=== PATIENT | female | born 1950 | race Caucasian/White ===

== ENCOUNTER 2024-02-11 22:09 | Observation (INO) | payer MEDICARE, MEDICAID, SELFPAY ==
[2024-02-11 22:09] VITALS: BP 158/99; PULSE 73; RESP 18; TEMP 36.6; O2SAT 99; BMI 23.3
--- NOTE | 2024-02-11 22:11 | XR_ITS ---
PROCEDURE INFORMATION: Exam: XR Left Elbow Exam date and time: 02/11/2024 10:30 PM Age: 73 years old Clinical indication: Injury or trauma; Fall; Fracture, traumatic injury; Closed fracture; Wrist; Left TECHNIQUE: Imaging protocol: Radiologic exam of the left elbow. Views: 3 or more views. COMPARISON: CR XR ELBOW LT MIN 3V 02/11/2024 10:30 PM FINDINGS: Bones/joints: The elbow is normally aligned. No acute fracture or joint effusion. Mild degenerative changes are noted. Soft tissues: Normal. IMPRESSION: No acute fracture.
--- NOTE | 2024-02-11 22:11 | XR_ITS ---
PROCEDURE INFORMATION: Exam: XR Chest Exam date and time: 02/11/2024 10:21 PM Age: 73 years old Clinical indication: Injury or trauma; Fall; Blunt trauma (contusions or hematomas); Additional info: Fall / left rib pain TECHNIQUE: Imaging protocol: Radiologic exam of the chest. Views: 2 views. COMPARISON: No relevant prior studies available. FINDINGS: Lungs: Unremarkable. No consolidation. Pleural spaces: Unremarkable. No pleural effusion. No pneumothorax. Heart/Mediastinum: Unremarkable. No cardiomegaly. Vasculature: Unremarkable. Bones/joints: Moderate degenerative changes of the spine. No acute fracture. IMPRESSION: No acute findings.
--- NOTE | 2024-02-11 22:11 | XR_ITS ---
PROCEDURE INFORMATION: Exam: XR Left Hand Exam date and time: 02/11/2024 10:30 PM Age: 73 years old Clinical indication: Injury or trauma; Fall; Fracture, traumatic injury; Closed fracture; Wrist; Left TECHNIQUE: Imaging protocol: Radiologic exam of the left hand. Views: 3 or more views. COMPARISON: CR XR HAND LT MIN 3V 02/11/2024 10:30 PM FINDINGS: Bones/joints: The wrist is reported separately. The metacarpals and phalanges are intact without acute fracture. Moderate degenerative changes of the 1st MCP joint. Soft tissues: Normal. IMPRESSION: No acute fracture of the metacarpals or phalanges.
--- NOTE | 2024-02-11 22:11 | XR_ITS ---
PROCEDURE INFORMATION: Exam: XR Left Wrist Exam date and time: 02/11/2024 10:30 PM Age: 73 years old Clinical indication: Injury or trauma; Fall; Fracture, traumatic injury; Closed fracture; Wrist; Left TECHNIQUE: Imaging protocol: Radiologic exam of the left wrist. Views: 3 or more views. COMPARISON: CR XR HAND LT MIN 3V 02/11/2024 10:30 PM FINDINGS: Bones/joints: There is a transverse distal radial fracture with significant dorsal and ulnar angulation of the distal fragment. No acute carpal bone fracture is evident. There are severe degenerative changes at the level of the 1st and 2nd CMC joints with heterotopic bone formation between the base of the 1st and 2nd metacarpals. Soft tissues: Significant soft tissue swelling most prominent ventrally. IMPRESSION: Transverse distal radial fracture with significant dorsal and ulnar angulation of the distal fragment. Associated soft tissue swelling.
--- NOTE | 2024-02-11 22:16 | ED_ITS ---
<Statement entered by Mehdi Ferreira MD - 02/12/24 01:14> I was consulted by the BERNIE, and we discussed the complexity of problems being addressed. I approved the treatment and management plan for this patient's care in the emergency department, thus performing a substantial portion of the medical decision making. See [facility] for further comments. Mehdi Ferreira MD Discharge Plan Disposition Patient Disposition: Admitted Clinical Impressions Clinical Impression: Frequent falls, Closed fracture of left radius and ulna Discharge ED Provider: Amber Arciniega Adult HPI <Enid Ye (ED), COMMUNITY HEALTH NURSE SUPERVISOR - Last Filed: 02/11/24 23:30> General Chief complaint: Extremity Injury, Upper Stated complaint: fall with arm deformity Time Seen by Provider: 02/11/24 22:11 History of Present Illness HPI narrative: This is a 73-year-old female who presents to the ED via EMS after a fall prior to arrival. She has her arm in a splint made by EMS. Pain is significant. She complains of left-sided rib pain from where she fell. Related Data Home Medications ?Medication ?Instructions ?Recorded ?Confirmed No Known Home Medications 02/12/24 02/12/24 Allergies Allergy/AdvReac Type Severity Reaction Status Date / Time No Known Allergies Allergy Verified 02/12/24 01:10 PFSH <Enid Ye (ED), COMMUNITY HEALTH NURSE SUPERVISOR - Last Filed: 02/11/24 23:30> [facility] Disclaimer: The information contained in this section may have been updated after the patient was seen, as this information can be updated by other users. Medical History (Updated 02/12/24 @ 00:44 by Mehdi Ferreira MD) COPD (chronic obstructive pulmonary disease) Hypertension Social History (Updated 02/11/24 @ 23:21 by Enid Ye (ED), COMMUNITY HEALTH NURSE SUPERVISOR) Smoking Status: Unknown if ever smoked alcohol intake: former current occupational status: unemployed Travel in the last 8 weeks: None <Enid Ye (ED), COMMUNITY HEALTH NURSE SUPERVISOR - Last Filed: 02/11/24 23:30> ROS Obtained: Yes Systems reviewed as appropriate & no additional complaints except as documented Constitutional Constitutional: Reports as per HPI Physical Exam <Enid Ye (ED), COMMUNITY HEALTH NURSE SUPERVISOR - Last Filed: 02/11/24 23:30> General General appearance: alert and in distress (And pain due to her fall secondary to left wrist pain) Head Head exam: atraumatic and normocephalic Eye Eye exam: Present normal appearance, PERRL and EOMI ENT ENT exam: Present normal exam Neck Neck exam: Present normal inspection and full ROM Chest Chest inspection: Present tenderness (On the left) Respiratory Respiratory exam: Present normal lung sounds bilaterally Cardiovascular Cardiovascular exam: Present regular rate, normal rhythm, normal heart sounds, +S1 and +S2 Abdominal Exam Abdominal exam: Present soft and normal bowel sounds Extremities Exam Extremities exam: Present tenderness, normal capillary refill (deformed left hand, wrist) and other (Left wrist and elbow have decreased range of motion due to fall. neurovascular intact ) Back Exam Back exam: Present normal inspection Neurological Exam Neurological exam: Present alert and oriented X3 Skin Skin exam: Present warm, dry and intact Medical Decision Making <Enid Ye (ED), COMMUNITY HEALTH NURSE SUPERVISOR - Last Filed: 02/11/24 23:30> Medical Records Screening: Per USPSTF and CDC recommendations, given the prevalence of disease in our region, it is our hospital?s policy to screen for HIV and viral Hepatitis for all patients aged 18 and over and those with ongoing risk factors. Mikey Inquiry Pt receiving controlled substance: No Vital Signs: 02/11/24 22:09 02/12/24 00:00 02/12/24 00:30 Temperature 97.9 F Temperature Source Oral Pulse Rate 74 71 Pulse Rate [Left Radial] 73 Respiratory Rate 18 Blood Pressure 167/97 H Blood Pressure [Right Arm] 158/99 H Blood Pressure Mean [Right Arm] 118 Blood Pressure Source [Right Arm] Automatic Cuff Blood Pressure Position [Right Arm] Sitting 02 Sat by Pulse Oximetry 99 96 97 Oxygen Delivery Method Room Air Orders (Tests/Meds): ED MEDICATIONS Generic Name Dose Route Start Last Admin Trade Name Freq PRN Reason Stop Dose Admin Acetaminophen 650 mg 02/12/24 00:43 Acetaminophen 325mg Tab PO 03/13/24 00:42 Q4HP PRN Fever or Mild Pain (1-3) Hydrocodone Bitart/Acetaminophen 1 tab 02/12/24 00:43 Hydrocodone/Apap 5/325 Mg Tablet PO 03/13/24 00:42 Q4HP PRN Mild to Moderate Pain (1-6) Heparin Sodium (Porcine) 5,000 unit 02/12/24 00:45 Heparin Sodium 5,000 Unit/Ml Vial SQ 03/13/24 00:44 Q8H ALEX Discontinued Medications Generic Name Dose Route Start Last Admin Trade Name Rocío PRN Reason Stop Dose Admin Hydrocodone Bitart/Acetaminophen 2 tab 02/11/24 22:14 02/11/24 22:24 Hydrocodone/Apap 5/325 Mg Tablet PO 02/11/24 22:15 2 tab ONCE ONE Administration Lidocaine HCl 20 ml 02/11/24 23:16 02/11/24 23:44 Lidocaine 1% 10ml Mdv IJ 02/11/24 23:17 20 ml ONCE ONE Administration ORDERS Category Date Time Status Elbow XR left mininum 3 views [XR elbow LT min 3V] Stat Exams 02/11/24 22:11 Completed Hand XR left minimum 3 views [XR hand LT min 3V] Stat Exams 02/11/24 22:11 Completed Wrist XR left 2 views [XR wrist LT 2V] Stat Exams 02/12/24 00:32 Completed Wrist XR left minimum 3 views [XR wrist LT min 3V] Stat Exams 02/11/24 22:11 Completed XR chest 2V Stat Exams 02/11/24 22:11 Completed Basic Metabolic Panel [facility] 02/12/24 06:00 Ordered Basic Metabolic Panel [facility] 02/13/24 06:00 Ordered Basic Metabolic Panel [facility] 02/14/24 06:00 Ordered Complete Blood Count Auto Diff [facility] 02/12/24 06:00 Ordered Complete Blood Count Auto Diff [facility] 02/13/24 06:00 Ordered Complete Blood Count Auto Diff [facility] 02/14/24 06:00 Ordered Medical Decision Narrative: Insert review patient is a 73-year-old female presenting to the emergency department for evaluation of fall injuring her left wrist and elbow. Patient is hemodynamically stable and nontoxic-appearing upon arrival, afebrile. Differential diagnosis includes sprain versus strain or fracture of left wrist and rib cage. Workup will be conducted with imaging of chest, left wrist, elbow and hand. Initial inventions include imaging of left ribs and left elbow and wrist. [Imaging informally interpreted by me and remarkable for:] [Formal imaging read remarkable for:] Upon repeat evaluation [patient's pain is improved, appears better perfused, appears the same, appears worse, etc. Due to this [additional interventions, patient is appropriate for discharge, patient requires admission, etc.]. <Mehdi Ferreira MD - Last Filed: 02/12/24 01:14> Vital Signs: 02/11/24 22:09 02/12/24 00:00 02/12/24 00:30 Temperature 97.9 F Temperature Source Oral Pulse Rate 74 71 Pulse Rate [Left Radial] 73 Respiratory Rate 18 Blood Pressure 167/97 H Blood Pressure [Right Arm] 158/99 H Blood Pressure Mean [Right Arm] 118 Blood Pressure Source [Right Arm] Automatic Cuff Blood Pressure Position [Right Arm] Sitting 02 Sat by Pulse Oximetry 99 96 97 Oxygen Delivery Method Room Air Orders (Tests/Meds): ED MEDICATIONS Generic Name Dose Route Start Last Admin Trade Name Freq PRN Reason Stop Dose Admin Acetaminophen 650 mg 02/12/24 00:43 Acetaminophen 325mg Tab PO 03/13/24 00:42 Q4HP PRN Fever or Mild Pain (1-3) Hydrocodone Bitart/Acetaminophen 1 tab 02/12/24 00:43 Hydrocodone/Apap 5/325 Mg Tablet PO 03/13/24 00:42 Q4HP PRN Mild to Moderate Pain (1-6) Heparin Sodium (Porcine) 5,000 unit 02/12/24 00:45 Heparin Sodium 5,000 Unit/Ml Vial SQ 03/13/24 00:44 Q8H ALEX Discontinued Medications Generic Name Dose Route Start Last Admin Trade Name Freq PRN Reason Stop Dose Admin Hydrocodone Bitart/Acetaminophen 2 tab 02/11/24 22:14 02/11/24 22:24 Hydrocodone/Apap 5/325 Mg Tablet PO 02/11/24 22:15 2 tab ONCE ONE Administration Lidocaine HCl 20 ml 02/11/24 23:16 02/11/24 23:44 Lidocaine 1% 10ml Mdv IJ 02/11/24 23:17 20 ml ONCE ONE Administration ORDERS Category Date Time Status Elbow XR left mininum 3 views [XR elbow LT min 3V] Stat Exams 02/11/24 22:11 Completed Hand XR left minimum 3 views [XR hand LT min 3V] Stat Exams 02/11/24 22:11 Completed Wrist XR left 2 views [XR wrist LT 2V] Stat Exams 02/12/24 00:32 Completed Wrist XR left minimum 3 views [XR wrist LT min 3V] Stat Exams 02/11/24 22:11 Completed XR chest 2V Stat Exams 02/11/24 22:11 Completed Basic Metabolic Panel [facility] 02/12/24 06:00 Ordered Basic Metabolic Panel [facility] 02/13/24 06:00 Ordered Basic Metabolic Panel [facility] 02/14/24 06:00 Ordered Complete Blood Count Auto Diff [facility] 02/12/24 06:00 Ordered Complete Blood Count Auto Diff [facility] 02/13/24 06:00 Ordered Complete Blood Count Auto Diff [facility] 02/14/24 06:00 Ordered Medical Decision Narrative: Insert review patient is a 73-year-old female presenting to the emergency department for evaluation of fall injuring her left wrist and elbow. Patient is hemodynamically stable and nontoxic-appearing upon arrival, afebrile. Differential diagnosis includes sprain versus strain or fracture of left wrist and rib cage. Workup will be conducted with imaging of chest, left wrist, elbow and hand. Initial inventions include imaging of left ribs and left elbow and wrist. [Imaging informally interpreted by me and remarkable for:] [Formal imaging read remarkable for:] Upon repeat evaluation [patient's pain is improved, appears better perfused, appears the same, appears worse, etc. Due to this [additional interventions, patient is appropriate for discharge, patient requires admission, etc.]. Ferreira: Upon my assumption of care patient is stable. I personally interpreted x-rays which demonstrate left distal radius and ulna fracture with angulation. See radiology reads for final interpretations. I discussed this case with Dr. Holloway and reviewed images with him. He recommends hematoma block, hanging the patient's arm with finger traps and weights as well as reduction and sugar-tong splinting for outpatient follow-up. Hematoma block, reduction, splinting were completed. See procedure note for details. Repeat x-ray imaging demonstrated improved alignment after reduction. Neurovascularly intact postreduction. Sling applied for splint support Patient at this time is medically stable however she has had frequent falls recently and has no electricity at home which was the cause of her fall tonight. She was attempting to cook over a fire pit when she fell off of her porch onto outstretched hand causing her injuries tonight. She states her fall earlier this week she skinned her knee. No complaints of the knee at this time. Patient does not have anyone to contact, no family or friends who are available. At this time she does not have a safe disposition given her frequent falls and lack of electricity, unsafe living conditions. I believe she requires admission for these reasons. I contacted the hospitalist and discussed this case with them. Patient has been accepted for admission for frequent falls and both bone left upper extremity fracture. Procedures <Mehdi Ferreira MD - Last Filed: 02/12/24 01:14> Risk/Benefits of Procedure(s) Were Explained: Yes Orthopedic Fracture Reduction Fracture #1: Time Out Performed: Yes Side: left Fracture Reduction Location: radius and ulna Analgesia: hematoma block Technique: direct manipulation, traction/counter-traction and finger traps Post Reduction X-rays Demonstrate: anatomical reduction Post-reduction neuro exam: intact and no change Post-reduction vascular exam: intact and no change Splint Applied: Yes Patient Tolerated Procedure: well and no complications Orthopedic Splinting/Casting Injury #1: Side: left Upper Extremity Injury Location: forearm Upper Extremity Immobilizer: sugar tong splint (Soft roll, Montrell wrap, plaster used for splint; splint personally applied and adjusted by me) Post Cast/Splinting Neuro Status: intact and no change Post Cast/Splinting Vasc Status: intact and no change Critical Care <Enid Ye (MARLON), COMMUNITY HEALTH NURSE SUPERVISOR - Last Filed: 02/11/24 23:30> Critical Care Time Critical Care Time: No
[2024-02-11] MEDS: HYDROCODONE/APAP 5/325 MG TABLET 2 TAB PO (22:24)
[2024-02-11] MEDS: LIDOCAINE 1% 10ML MDV 20 ML IJ (23:44)
--- NOTE | 2024-02-11 23:51 | PC.NURSE ---
Placed plaster, cast padding, librado wraps, warm water, finger traps, and IV pole at bedside for provider. Provider performed hematoma block at this time. Patient tolerated well. Patient reports no needs at this time.
[2024-02-12] VITALS: PULSE 74; O2SAT 96
[2024-02-12 00:30] VITALS: BP 167/97; PULSE 71; O2SAT 97
--- NOTE | 2024-02-12 00:32 | XR_ITS ---
PROCEDURE INFORMATION: Exam: XR Left Wrist Exam date and time: 02/12/2024 12:47 AM Age: 73 years old Clinical indication: Abnormal findings; Abnormal imaging study of the limbs; Left wrist; Additional info: Post splint TECHNIQUE: Imaging protocol: Radiologic exam of the left wrist. Views: 1 or 2 views. COMPARISON: CR XR WRIST LT MIN 3V 02/11/2024 10:30 PM FINDINGS: Bones/joints: The distal radial fracture has been reduced. Anatomic alignment is evident. A cast is now in place. Soft tissues: Obscured. IMPRESSION: Status post reduction of the distal radial fracture with anatomic alignment noted.
--- NOTE | 2024-02-12 00:44 | PC.NURSE ---
call placed to housetrailer servicer for bed assignment. dx: radial ulna fracture, frequent falls. admit to hospitalist
--- NOTE | 2024-02-12 01:09 | PC.NURSE ---
Nurse to nurse report Lore OLVERA
[2024-02-12 01:11] VITALS: BP 132/76; PULSE 59; RESP 17; TEMP 36.7; O2SAT 99
[2024-02-12 01:27] VITALS: BP 132/76; PULSE 68; RESP 18; O2SAT 98; BMI 21.0
[2024-02-12] MEDS: HEPARIN SODIUM 5,000 UNIT/ML VIAL 5000 UNIT SQ ×2 (02:05→08:40)
[2024-02-12] MEDS: HYDROCODONE/APAP 5/325 MG TABLET 1 TAB PO ×3 (02:51→16:40)
[2024-02-12 04:00] VITALS: BP 138/71; PULSE 71; RESP 16; TEMP 36.4; O2SAT 99; BMI 21.0
--- NOTE | 2024-02-12 04:21 | P.HP_ITS ---
History of Present Illness *Admission Date: 02/12/24 *Reason for visit:: falls *History of present illness: Patient is a 73-year-old female with past medical history of COPD hypertension who presents to the hospital due to the fall. According to the patient this is her second fall in the past 1 week. After the fall she developed s pain in her left side of chest as well as left arm, on further evaluation patient was found to be having transverse distal radial fracture which was reduced in the emergency department. Patient was admitted for recurrent falls and physical therapy evaluation. [facility] Disclaimer: The information contained in this section may have been updated after the patient was seen, as this information can be updated by other users. Medical History (Updated 02/12/24 @ 04:31 by Sara Putnam MD) COPD (chronic obstructive pulmonary disease) Hypertension Surgical History (Updated 02/12/24 @ 01:57 by Lore Macias RN) History of cholecystectomy Family History (Updated 02/12/24 @ 01:57 by Lore Macias RN) Mother Diabetes Heart attack Sister Hypertension Father Esophageal cancer Social History (Updated 02/12/24 @ 01:59 by Lore Macias RN) Smoking Status: Unknown if ever smoked alcohol intake: current substance use type: marijuana current occupational status: retired Travel in the last 8 weeks: None Review of Systems Review of Systems Review of systems:: pertinent systems reviewed and negative unless documented below Meds Home Medications and Allergies Home Medications ?Medication ?Instructions ?Recorded ?Confirmed ?Type No Known Home Medications 02/12/24 02/12/24 History New Prescriptions to Start Prescriptions: Allergies Allergy/AdvReac Type Severity Reaction Status Date / Time No Known Allergies Allergy Verified 02/12/24 01:10 Exam Data for Last 24 hours Vital signs and Labs for Last 24 Hours: Temp Pulse Resp BP Pulse Ox O2 Del Method 98.0 F 59 L 17 132/76 97 Room Air 02/12/24 01:11 02/12/24 01:11 02/12/24 01:11 02/12/24 01:11 02/12/24 00:30 02/12/24 02:57 I & O for Last 24 hours: Intake & Output 02/09/24 02/10/24 02/11/24 02/12/24 23:59 23:59 23:59 23:59 Weight 63.503 kg Constitutional Constitutional: no acute distress *Routine HEENT Exam Head: Present normocephalic Eye: Present EOMI and PERRL ENT: Present mucous membranes moist *Routine Neck Exam Neck: Present supple; Absent lymphadenopathy *Routine Respiratory Exam Respiratory: Present CTA bilaterally *Routine Cardiovascular Exam Cardiovascular: Present RRR *Routine Abdominal Exam Abdominal: Present soft and normoactive bowel sounds; Absent tenderness *Routine Rectal Exam Rectal:: deferred *Routine Genitalia Exam Genitalia:: deferred *Routine Extremities Exam Extremities: Absent cyanosis, clubbing or edema *Routine Skin Exam Skin: Present warm; Absent rash *Routine Neurological Exam Neurological: Present alert and oriented X3 Assessment and Plan *Assessment and plan (1) Closed fracture of left radius and ulna: Status: Acute Category: Medical Code(s): S52.92XA - Unspecified fracture of left forearm, initial encounter for closed fracture; S52.202A - Unspecified fracture of shaft of left ulna, initial encounter for closed fracture (2) Frequent falls: Status: Acute Category: Medical Code(s): R29.6 - Repeated falls (3) COPD (chronic obstructive pulmonary disease): Status: Acute Category: Medical Code(s): J44.9 - Chronic obstructive pulmonary disease, unspecified Plan Patient is a 73-year-old female with past medical history of COPD hypertension who presents to the hospital due to the fall. According to the patient this is her second fall in the past 1 week. After the fall she developed s pain in her left side of chest as well as left arm, on further evaluation patient was found to be having transverse distal radial fracture which was reduced in the emergency department. Patient was admitted for recurrent falls and physical therapy evaluation. Assessment Recurrent falls Left distal radius fracture Fall precautions Consult PT/OT X-ray left wrist did not show transverse distal radius fracture which was reduced in the emergency department, splint was applied, pain follow-up with orthopedics as outpatient Consult social work therapist Pain control Check CBC, CMP COPD As needed DuoNeb DVT prophylaxis-heparin
[2024-02-12 05:09] LABS: POC Glucose,Bedside 111 (70-110)
[2024-02-12 05:11] LABS: Basophils % 0.4 % (0.1-2.0); Eosinophils # 0.2 K/mm3 (0.0-0.4); Eosinophils % 3.6 % (0.1-12.0); Hematocrit 43.3 % (37.0-47.0); Hemoglobin 13.3 g/dL (12.2-16.2); Lymphocytes # 1.3 K/mm3 (0.7-4.5); Lymphocytes % 24.1 % (10-50); Mean Corpuscular HGB Conc 30.6 g/dL (31.8-35.4); Mean Corpuscular Hemoglobin 29.5 pg (27.0-31.2); Mean Corpuscular Volume 96.4 fl (81-99); Mean Platelet Volume 7.7 fl (7.4-10.4); Monocytes # 0.3 K/mm3 (0.1-1.0); Neutrophils # 3.6 K/mm3 (1.8-7.8); Neutrophils % 65.9 % (37.0-80.0); Platelet Count 216 K/mm3 (142-424); Red Cell Distribution Width 13.4 % (11.5-17.5); White Blood Count 5.5 K/mm3 (4.8-10.8)
[2024-02-12 05:19] LABS: Alanine Aminotransferase 24 U/L (12-78); Albumin Level 4.1 g/dl (3.5-5.0); Albumin/Globulin Ratio 1.4 (1.1-1.8); Alkaline Phosphatase 90 U/L (38-126); Anion Gap 5.4 mEq/L (5-15); Aspartate Amino Transferase 31 U/L (14-36); Bilirubin,Total 0.4 mg/dl (0.2-1.3); Blood Urea Nitrogen 24 mg/dl (7-17); Carbon Dioxide 27 mmol/L (22.0-30.0); Chloride 109 mmol/L (98-107); Creatinine Clearance Estimated 45 mL/min (50-200); Estimated Glomerular Filt Rate 70 ml/min (>60); GFR (African American) 85 ML/MIN (>60); Glucose 114 mg/dl (74-100); Potassium 3.4 mmoL/L (3.5-5.1); Sodium 138 mmol/L (136-145); Total Protein,Serum 7.1 g/dl (6.3-8.2)
--- NOTE | 2024-02-12 07:41 | PC.NURSE ---
Accessed PT chart to get a face sheet for EMS.
[2024-02-12 08:00] VITALS: BP 137/76; PULSE 87; RESP 16; TEMP 36.7; O2SAT 100
[2024-02-12] MEDS: POTASSIUM CHLORIDE 20MEQ TAB 40 MEQ PO ×2 (08:34→11:58)
--- NOTE | 2024-02-12 08:49 | HMH.PHAINT1 ---
Pharmacy Intervention Comments: MEDICATION RECONCILIATION COMPLETE. NO CURRENT EXTERNAL PHARMACY FILL HISTORY AND PER STEVIE PATIENT STATED SHE HASN'T BEEN TO THE DOCTOR IN AWHILE AND IS TAKING NOTHING AT HOME.
[2024-02-12 10:09] LABS: Vitamin B12 317 pg/mL (239-931)
--- NOTE | 2024-02-12 10:21 | HMH.PTEV ---
Physical Therapy Evaluation Rehab PT IP Evaluation Start: 02/12/24 00:46 Freq: ONCE Status: Active Protocol: Document 02/12/24 10:11 MARY (Rec: 02/12/24 10:21 MARY [id number]) Subjective/History History History Per H&P: Patient is a 73-year -old female with past medical history of COPD hypertension who presents to the hospital due to the fall. According to the patient this is her second fall in the past 1 week . After the fall she developed s pain in her left side of chest as well as left arm, on further evaluation patient was found to be having transverse distal radial fracture which was reduced in the emergency department. Patient was admitted for recurrent falls and physical therapy evaluation. Subjective Subjective Pt reports she lives with her younger sister and is usually IND with all functional mobility. Pt lives in a mobile home with a porch addition that has 2 VALENTINE with a HR. Pt ended up with a distal radius fracture after falling up her steps at home. Pt also tripped previously that week and fell on the porch. Pt denies any falls prior. Pt denies ever using an AD (no cane or RW). Pt does not drive. Pt reports her sister is around during the day if needed. Pt reports she currently does not have electricity so she is having to navigate in the dark at home. I think I can walk well New diagnosis of cancer in past 12 No months? Rehab PT IP Eval Objective Appearance Patient Behavior Appropriate,Cooperative Patient Orientation Person,Situation Difficulty following instructions none Speech Pattern Clear Ambulation Patient Able to Ambulate Yes Ambulation Observation Ambulation Distance (feet) 30 Ambulation Assistive Device None Ambulation Ability Supervision/Stand by Balance Ability to Arise Able, uses arms to help Sitting Balance Steady, safe Standing Balance Narrow stance w/o support Dynamic Sitting Balance Ability Good Dynamic Standing Balance Ability Good Transfers Bed Transfer Ability Supervision/Stand by Sit to Stand Bed Transfer Ability Supervision/Stand by Rehab PT IP prob,goals,plan Problems Date of Evaluation: 02/12/24 Rehab Potential Rehab Potential Innapropriate for Skilled Therapy Discharge Plan PT Discharge Plan Pt safe to d/c home when deemed medically necessary d/t current level of mobility, home set-up, and family support. PT assumes pt is NWB LUE d/t the nature of her injury. PT educated pt on not putting weight through her forearm/wrist. PT demo'd a platform walker to allow improved mobility with this type of injury. Pt reports she does not need a walker. After assessing pt's mobility, pt demo'd safe household level ambulation without an AD. No safety impairments or balance deficits noted during ambulation and toileting tasks . Pt not appropriate for skilled acute care PT at this time d/t pt?s mobility being at baseline. Pt may benefit from PT services to address general strengthening, balance training, and fall education to prevent future falls. Eval Complexity Eval Charge Codes 37865 - Low Complexity PHYSICIAN CERTIFICATION: I certify the specified therapy services for Latia Rashid are required, authorized, and reviewed every 30 days.
[2024-02-12 11:25] LABS: POC Glucose,Bedside 119 (70-110)
--- NOTE | 2024-02-15 12:41 | SW/DCPLANNER ---
I attempted to contact this patient twice for hospital discharge follow up. No answer at this time/no VM available.
--- NOTE | 2024-02-25 07:58 | EXP.DC.SUM ---
General Admission date:: 02/12/24 Discharge date: 02/12/24 HPI HPI HPI: Patient is a 73-year-old female with past medical history of COPD hypertension who presents to the hospital due to the fall. According to the patient this is her second fall in the past 1 week. After the fall she developed s pain in her left side of chest as well as left arm, on further evaluation patient was found to be having transverse distal radial fracture which was reduced in the emergency department. Patient was admitted for recurrent falls and physical therapy evaluation. Hospital Course Hospital Course Hospital Course: Patient is a 73-year-old female with past medical history of COPD hypertension who presents to the hospital due to the fall. According to the patient this is her second fall in the past 1 week. After the fall she developed s pain in her left side of chest as well as left arm, on further evaluation patient was found to be having transverse distal radial fracture which was reduced in the emergency department. Patient was admitted for recurrent falls and physical therapy evaluation. Recurrent falls Left distal radius fracture - X-ray left wrist showed transverse distal radius fracture which was reduced in the emergency department, orthopedics was consulted and splint was applied, pain follow-up with orthopedics as outpatient. ? PT consulted, recommended home health with PT. ? Pain well managed with ibuprofen. - Discharged with home health with physical therapy. - Will follow-up with orthopedics within 1 week. Exam Data for Last 24 hours Vital signs and Labs for Last 24 Hours: Temp Pulse Resp BP Pulse Ox O2 Del Method 98.1 F 87 16 137/76 100 Room Air 02/12/24 08:00 02/12/24 08:00 02/12/24 08:00 02/12/24 08:00 02/12/24 08:00 02/12/24 17:00 Constitutional Constitutional: no acute distress *Routine HEENT Exam Head: Present normocephalic Eye: Present EOMI and PERRL ENT: Present mucous membranes moist *Routine Neck Exam Neck: Present supple; Absent lymphadenopathy *Routine Respiratory Exam Respiratory: Present CTA bilaterally *Routine Cardiovascular Exam Cardiovascular: Present RRR *Routine Abdominal Exam Abdominal: Present soft and normoactive bowel sounds; Absent tenderness *Routine Extremities Exam Extremities: Absent cyanosis, clubbing or edema Comments: Left wrist splint in place. *Routine Skin Exam Skin: Present warm; Absent rash *Routine Neurological Exam Neurological: Present alert and oriented X3 DS: Diagnosis Discharge Diagnosis (1) Closed fracture of left radius and ulna: Status: Acute Code(s): S52.92XA - Unspecified fracture of left forearm, initial encounter for closed fracture; S52.202A - Unspecified fracture of shaft of left ulna, initial encounter for closed fracture (2) Frequent falls: Status: Acute Code(s): R29.6 - Repeated falls (3) COPD (chronic obstructive pulmonary disease): Status: Acute Code(s): J44.9 - Chronic obstructive pulmonary disease, unspecified Meds Home Medications and Allergies Home Medications ?Medication ?Instructions ?Recorded ?Confirmed ?Type ibuprofen 600 mg tablet 600 mg PO TID PRN pain #20 tabs 02/12/24 03/16/24 Rx New Prescriptions to Start Prescriptions: ibuprofen Jae Carey Allergies Allergy/AdvReac Type Severity Reaction Status Date / Time No Known Allergies Allergy Verified 03/16/24 10:18 Discharge Plan Disposition Patient Disposition: Home, Self-Care Condition: Fair Follow up Plan Follow up with: Forest Holloway DO [Staff Physician] - Enter time for follow up (Please call to make an appointment.) Prescriptions/Medication Reconciliation: New ibuprofen 600 mg tablet 600 mg PO TID PRN (Reason: pain) Qty: 20 0RF Problem Reconciliation Problems Reviewed?: Yes Patient Discharge Instructions ACTIVITY: Ambulate as tolerated Patient Instructions: DI for Forearm Fracture, How to Prevent Falls Print Language: Togolese Providers Primary Care Provider: Hasmukh Schreiber Admit Provider: Jae Carey Attending Provider: Jae Carey
== END 2024-02-12 17:10 | disposition home or self-care (01) ==
LOC: ER 02-12 00:44 → 2ND 02-12 01:37
PROVIDERS: Internal Medicine; Admitting Provider Student in an Organized Health Care Education/Training Program; Emergency Provider Student in an Organized Health Care Education/Training Program; PCP Family Medicine; Visit Provider Student in an Organized Health Care Education/Training Program
DX: S52.92XA Unspecified fracture of left forearm, initial encounter for closed fracture (principal); W10.8XXA Fall (on) (from) other stairs and steps, initial encounter; J44.9 Chronic obstructive pulmonary disease, unspecified; I10 Essential (primary) hypertension; R29.6 Repeated falls; Z91.81 History of falling; Y92.018 Other place in single-family (private) house as the place of occurrence of the external cause
CPT/HCPCS: 25605; 36415; 71046; 73080; 73100; 73110; 73130; 80053; 82607; 82746; 82962; 85025; 97161; 99285; G0378; J1644

== ENCOUNTER 2024-03-02 09:24 | Outpatient (CLI) | payer MEDICARE, MEDICAID, SELFPAY ==
--- NOTE | 2024-03-02 09:28 | XR_ITS ---
FINAL REPORT CLINICAL HISTORY: fx follow up 3 weeks post fracture no surgery COMPARISON: 02/12/2024 FINDINGS: LEFT WRIST Three views of the left wrist were obtained. A splint is present which obscures some of the detail. There is a comminuted impacted fracture of the distal radius with a small amount of callus formation at the fracture site consistent with interval healing. No new bony abnormalities identified. Severe degenerative changes are noted at the first carpometacarpal joint. The soft tissues are unremarkable. IMPRESSION: Healing distal radius fracture. Reviewed, Interpreted and Dictated by Chava Packer III, MD Transcribed by Mary Ellen Gayle Authenticated and [facility]
== END 2024-03-02 23:59 | disposition home or self-care (01) ==
PROVIDERS: PCP Family Medicine; Visit Provider Physician Assistant
DX: M25.532 Pain in left wrist (principal); S62.102A Fracture of unspecified carpal bone, left wrist, initial encounter for closed fracture
CPT/HCPCS: 73110

== ENCOUNTER 2024-03-16 09:18 | Outpatient (CLI) | payer MEDICARE, MEDICAID, SELFPAY ==
--- NOTE | 2024-03-16 09:30 | XR_ITS ---
PROCEDURE INFORMATION: Exam: XR Left Wrist Exam date and time: 03/16/2024 9:38 AM Age: 73 years old Clinical indication: Pain; Wrist; Left; Additional info: Fracture f/u TECHNIQUE: Imaging protocol: Radiologic exam of the left wrist. Views: 3 or more views. COMPARISON: CR XR WRIST LT MIN 3V 03/02/2024 9:35 AM FINDINGS: Bones/joints: Unchanged alignment and mild increased callus formation of the comminuted, minimally displaced distal intra-articular radius fracture. Fracture gaps are still visible. No new fracture or malalignment. Moderate to severe degenerative change of the triscaphe joint again demonstrated. Soft tissues: Overlying splint limits evaluation of soft tissues and fine bony detail. IMPRESSION: Continued healing and unchanged alignment of distal radius fracture.
== END 2024-03-16 23:59 | disposition home or self-care (01) ==
PROVIDERS: PCP Family Medicine; Visit Provider Physician Assistant
DX: S62.102A Fracture of unspecified carpal bone, left wrist, initial encounter for closed fracture (principal)
CPT/HCPCS: 73110

== ENCOUNTER 2024-03-30 09:20 | Outpatient (CLI) | payer MEDICARE, MEDICAID, SELFPAY ==
--- NOTE | 2024-03-30 09:28 | XR_ITS ---
FINAL REPORT CLINICAL HISTORY: .fx 2 months ago no surgery COMPARISON: 03/02/2024 FINDINGS: LEFT WRIST Three views of the left wrist were obtained. Cast obscures some of the detail. Again noted is a distal radius fracture. Bony alignment is stable. There are degenerative and postoperative changes of the wrist. The soft tissues are unremarkable. IMPRESSION: Distal radius fracture again noted with stable bony alignment. Reviewed, Interpreted and Dictated by Chava Packer III, MD Transcribed by Zenaida Dubon Authenticated and [facility]
== END 2024-03-30 23:59 | disposition home or self-care (01) ==
LOC: RAD 09:22
PROVIDERS: PCP Family Medicine; Visit Provider Orthopaedic Surgery
DX: S62.102A Fracture of unspecified carpal bone, left wrist, initial encounter for closed fracture (principal)
CPT/HCPCS: 73110

== ENCOUNTER 2024-04-27 09:14 | Outpatient (CLI) | payer MEDICARE, OTHER, SELFPAY ==
--- NOTE | 2024-04-27 09:19 | XR_ITS ---
FINAL REPORT CLINICAL HISTORY: left wrist fx f/u COMPARISON: 03/30/2024 FINDINGS: LEFT WRIST Three views of the left wrist were obtained. The cast has been removed. There are subacute fractures of the distal radius and ulnar styloid process. There is callus formation at the radial fracture site. The bony alignment is stable. There are severe degenerative changes of the first carpometacarpal joint. There is wrist soft tissue swelling. IMPRESSION: Subacute fractures of the distal radius and ulnar styloid process with callus formation at the radial fracture site. Reviewed, Interpreted and Dictated by Chava Packer III, MD Transcribed by Mary Ellen Gayle Authenticated and [facility]
== END 2024-04-27 23:59 | disposition home or self-care (01) ==
LOC: RAD 09:17
PROVIDERS: PCP Family Medicine; Visit Provider Physician Assistant Surgical
DX: S62.102A Fracture of unspecified carpal bone, left wrist, initial encounter for closed fracture (principal)
CPT/HCPCS: 73110

== ENCOUNTER 2024-06-01 14:00 | Outpatient (CLI) | payer MEDICARE, MEDICAID, SELFPAY ==
--- NOTE | 2024-06-01 14:05 | XR_ITS ---
FINAL REPORT CLINICAL HISTORY: left wrist pain, F/U FX COMPARISON: 04/27/2024 FINDINGS: LEFT WRIST Three views demonstrate once again a transverse fracture of the distal radial metaphysis with intra-articular extension. There is mild impaction of the fracture fragments, and bridging callus. The overall appearance is not significantly changed since the prior exam of 04/27/2024. There is ulnar positive variance noted. The ulnar styloid is a free fragment, also stable. 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 The soft tissues are unremarkable. IMPRESSION: No significant change in the transverse fracture of the distal radial metaphysis, as described, when compared to the prior exam of 04/27/2024. Reviewed, Interpreted and Dictated by Homero Colin MD Transcribed by Erendira Blank Authenticated and [facility]
== END 2024-06-01 23:59 | disposition home or self-care (01) ==
PROVIDERS: PCP Family Medicine; Visit Provider Physician Assistant Surgical
DX: S62.102A Fracture of unspecified carpal bone, left wrist, initial encounter for closed fracture (principal)
CPT/HCPCS: 73110

== ENCOUNTER 2024-10-28 16:33 | Emergency (ER) | payer MEDICARE, SELFPAY ==
--- OUTSIDE RECORDS SUMMARY | 2024-09-27 11:00 | XMS_ITS | Encounter Summary ---
Author Organization [place] [address] Care Team Providers Care Seafood Manager Name Role Phone Hasmukh Schreiber MD Primary Care Provider Reason for Visit * Reason Comments Annual Exam Encounter Details Date Type Department Care Team (Late st Contact Info) Description 09/27/2024 11:00 AM EDT Office Visit [facility] [address] [place] [address] Hasmukh Schreiber MD [address] [place] [address] Annual physical exam (Primary Dx); Leg swelling; Chronic pain of left knee Social History Tobacco Use Types Packs/Day Years Used Date Smoking Tobacco: Never Smokeless Tobacco: Never Alcohol Use Standard Drinks/Week Comments Yes 0 (1 standard drink = 0.6 oz pur e alcohol) 2 beers a day and whisky PHQ-2 Answer Date Recorded PHQ-2 Total Score 0 09/27/2024 Sexually Active Control Partners Comments Yes Male Comments No Sex and Gender Information Value Date Recorded Sex Assigned at Not on file Legal Sex Female 9:26 PM EDT Gender Identity Not on file Sexual Orientation Not on file documented as of this encounter Last Filed Vital Signs Vital Sign Reading Time Taken Comments Blood Pressure 130/78 09/27/2024 10:29 AM EDT Pulse - - Temperature 36.7 C (98 F) 09/27/2024 10:29 AM EDT Respiratory Rate - - Oxygen Saturation - - Inhaled Oxygen Concentration - - Weight 64.4 kg (142 lb) 09/27/2024 10:29 AM EDT Height 170.2 cm (5' 7 ) 09/27/2024 10:29 AM EDT Body Mass Index 22.24 09/27/2024 10:29 AM EDT documented in this encounter Functional Status * Cognitive and Functional Status Question Answer Date of Assessment Author Is the person deaf or does he/she have serious difficulty hearing? No 09/27/2024 10:28 AM Cheryl Blue CCMA Is the person blind or does he/she have serious difficulty seeing even when wearing glasses? No 09/27/2024 10:28 AM Cheryl Blue CCMA Does this person have seriou s difficulty walking or climbing stairs? No 09/27/2024 10:28 AM Cheryl Blue CCMA Does this person have difficulty dressing or bathing? No 09/27/2024 10:28 AM Cheryl Blue CCMA * Is the person deaf or does he/she have serious difficulty hearing? Answer Date of Assessment Author No 09/27/2024 10:28 AM Cheryl Blue CCMA * Is the person blind or does he/she have serious difficulty seeing even when wearing glasses? Answer Date of Assessment Author No 09/27/2024 10:28 AM Cheryl Blue CCMA * Does this person have serious difficulty walking or climbing stairs? Answer Date of Assessment Author No 09/27/2024 10:28 AM Cheryl Blue CCMA * Does this person have difficulty dressing or bathing? Answer Date of Assessment Author No 09/27/2024 10:28 AM Cheryl Blue CCMA * Because of a physical, mental or emotional condition, does this person have difficulty doing errands alone such as visiting a doctor's office or shopping? Answer Date of Assessment Author No 09/27/2024 10:28 AM Cheryl Blue CCMA * PHQ-9 Total Score Answer Date of Assessment Author 0 09/27/2024 10:28 AM EDT Aimee, Cheryl Mariana, CCMA * Question Answer Date of Assessment Author Little interest or pleasure in doing things 0 09/27/2024 10:28 AM Cheryl Blue CCMA Feeling down, depressed, or hopeless 0 09/27/2024 10:28 AM Cheryl Blue CCMA PHQ-2 Total Score 0 09/27/2024 10:28 AM EDT Cheryl Yu CCMA * Question Answer Date of Assessment Author Feeling Nervous, Anxious, or on Edge 0 09/27/2024 10:28 AM EDCheryl Goddard CCMA Not Being Able to Stop or Control Worrying 0 09/27/2024 10:28 AM Cheryl Blue CCMA Worrying too Much About Different Things 0 09/27/2024 10:28 AM EDCheryl Goddard CCMA Trouble Relaxing 0 09/27/2024 10:28 AM EDCheryl Goddard CCMA Being so Restless That it is Hard to Sit Still 0 09/27/2024 10:28 AM Cheryl Blue CCMA Becoming Easily Annoyed or Irritable 0 09/27/2024 10:28 AM Cheryl Blue CCMA Feeling Afraid as if Something Awful Might Happen 0 09/27/2024 10:28 AM Cheryl Blue CCMA MILAGRO-7 Total Score 0 09/27/2024 10:28 AM Cheryl Blue CCMA documented as of this encounter Mental Status * Cognitive and Functional Status Question Answer Entry Date Author Because of a physical, menta l or emotional condition, does this person have difficulty doing errands alone such as visiting a doctor's office or shopping? No 09/27/2024 10:28 AM Cheryl Blue CCMA Because of a physical, menta l or emotional condition, does this person have serious difficulty concentrating, remembering or making decisions? No 09/27/2024 10:28 AM Cheryl Blue CCMA * Because of a physical, mental or emotional condition, does this person have serious difficulty concentrating, remembering or making decisions? Answer Entry Date Author No 09/27/2024 10:28 AM EDT Cheryl Yu CCMA documented in this encounter Ordered Prescriptions Prescription Sig Dispense Quantity Refills Last Filled Start Date End Date meloxicam (MOBIC) 7.5 mg Oral TabletIndications:C hronic pain of left knee Take 1 Tablet by mouth daily. 30 Tablet 2 09/27/2024 fUROsemide (LASIX) 20 mg Oral TabletIndications:L eg swelling Take 1 Tablet by mouth daily as needed. 30 Tablet 5 09/27/2024 documented in this encounter Progress Notes * Hasmukh Schreiber MD - 09/27/2024 11:00 AM EDT Vitals: 09/27/24 1029 BP: 130/78 Temp: 98 ??F (36.7 ??C) Weight: 142 lb (64.4 kg) Height: 5' 7 (1.702 m) Body mass index is 22.24 kg/m??. SUBJECTIVE: Chief Complaint Patient presents with Annual Exam HPI: Medicare Wellness Assessment: Subsequent Annual Medicare Wellness Assessment. Risk Assessments: Fall Risk Assessment Has the patient had any fall with injury in the past year?: No Has the patient had 2 or more falls in the past year?: No Is the patient able to sit without assistance?: Yes Is the patient able to get up without assistance?: Yes Does the patient have a difficult time ambulating when first getting up?: No Does the patient have rugs or runners in the home?: No Does the patient have grab bars in the bathroom?: Yes Does the patient have stairs inside or outside of the home?: No (In Office Assessment Only): Is the patient able to ambulate without assistance/device and with a gait steady?: Yes (In Office Assessment Only): TUG test: Time patient going from sitting to standing, walk 10 feet, return to chair and sit. Record time. : Less or equal to 12 seconds Functional Status Assessment Functional Level: self care Functional Mobility Assessment: independent w/o assist device Assessment of transportation needs: (!) dependent on other/public transportation Functional Activities of Daily Living Limitations: No issues Bladder: Do you have issues with your bladder, such as urgency or leaking urine?: No issues Does the patient report issues or concerns regarding hearing?: No Activities of Daily Living Assistive Device Assessment Assistive Devices: None Osteoporosis Screening Assessment Has the patient had a DEXA (Bone Density) scan in the past 2 years?: Yes Results for orders placed during the hospital encounter of 10/28/23 DX BONE DENSITY AXIAL SKELETON Impression Indication: The patient is a female age 65 or older who requires a bone density assessment. Study was performed on [employer] 5. Bone Density: Region BMD T-score Z-score AP Spine (L1, L2, L3) 0.949 -0.6 1.6 Femoral Neck (Left) 0.672 -1.6 0.4 Total Hip (Left) 0.727 -1.8 -0.1 Femoral Neck (Right) 0.603 -2.2 -0.2 Total Hip (Right) 0.814 -1.0 0.6 World Health Organization criteria for BMD interpretation classify patients as: Normal (T-score at or above -1.0), Low Bone Density (T-score between -1.0 and -2.5), or Osteoporotic (T-score at or below -2.5). T Scores are reported in Postmenopausal women and in men age 50 and older. Z-scores are reported in females prior to menopause and in males younger than age 50. 10-year Fracture Risk(1): Major Osteoporotic Fracture 22% Hip Fracture 10% Reported Risk Factors: [place] (), Neck BMD=0.603, BMI=26.3, parental fracture (1) FRAX(R) Version 3.08. Fracture probability calculated for an untreated patient. Fracture probability may be lower if the patient has received treatment. Clinical Information Provided by Patient: Parent has had a hip fracture Has used or is currently using the following medications: Diuretic Has had or currently has the following medical conditions: Asthma, Emphysema or COPD, Back pain Patient maximum height was 66 Menopause Age: 49 Patient is post menopausal Interpretation: Bone mineral density is in the low bone density range. Medical evaluation for secondary causes of low bone mineral density may be appropriate. A minimum of two years may be required between bone density studies due to inherent testing precision limitations. Intervals between BMD testing should be determined according to each patient's clinical status: typically one year after initiation or change in therapy is appropriate, with longer intervals once therapeutic effect is established. The spine portion of the study is limited by hypertrophic change with associated vertebra deleted. The National Osteoporosis Foundation recommends treating patients with FRAX scores of greater than or equal to 20% for major osteoporotic fractures or greater than or equal to 3% for hip fracture. The patient's FRAX score does meet the threshold for treatment consideration. FRAX score is included in the body of this report. Reported by: Romina Lucas PA-C, [facility] on 10/28/2023 3:19:00 PM. Abnormal Pains Assessment Excluding what you would consider normal aches and pains for your age and medical condition, do youhave any unusual or worrisome pains?: No Opiate Screening Are you currently on opiate or narcotic medications?: No PHQ Depression Screening Results Little interest or pleasure in doing things: 0 Feeling down, depressed, or hopeless: 0 PHQ-2 Total Score: 0 PHQ-9 Total Score: 0 Advanced Directive Evaluation Advance Care Planning Guide Given?: Yes (For Dementia Screening below can use either AD-8 or Mini Cog. Doesn't require both.) AD-8 Dementia Screening tool results Mini Cog Dementia Screening tool results Dementia: Negative Welcome to Medicare Vision Screening Eye Exam : Not applicable/required for Subsequent AWV, only required for Welcome to Medicare Visit Patient Instructions AWV findings and Plan of Care: Recommendations as part of the Personal Plan of Care based on risk screening assessments are: Fall Risk Assessment: Fall Risk Assessment: negative - re-assess in 1 year Functional Status/Social Determinates of Health: stable, no issues, re-assess in 1 year Depression Screening: negative - re-assess in 1 year Dementia Screening: negative - recommend re-assess in 1 year Vaccinations: up to date Exercise/Activity: recommended continuing current Recommended follow up annually for Medicare Annual Wellness Visit. Good preventative health care is important in reducing morbidity and mortality. I recommend exercise regularly as tolerated focusing on strength and balance. I recommend a balanced diet focusing on fruits, veggies, and lean meats. I recommend avoiding having rugs, runners, or other loose trip hazards in the home as these increase fall risk. I recommend installing grab bars in the bathrooms close to toilets, in tubs, and in showers as these are common areas for falls when transitioning from wet surfaces to dry surfaces, or visa versa. This is also an area of the home that is high risk for falls at night. I encourage having an Advanced Directives. This is something we recommend you have on file at home,as well as something that we should have on file in our records. If we don't have a copy of your current Advanced Directive, please bring a copy to your next visit. If you have a power of claims attorney orsurrogate, we should also have a copy on file. I encourage candid discussion with your family on your wishes in the event that you are incapacitated and unable to participate in direct medical decision making. It is important to stay up to date on recommended vaccinations, please see the health maintenance topics due below and if we have not completed one of those topics today, please consider completing as part of your wellness plan this year. Below are other health maintenance topics that are recommended to be closed at your earliest opportunity. You may notice that some of these were addressed in the office today and will show as resolved in your [facility] account soon. Health Maintenance Due Topic Date Due Hepatitis C Screening Never done DTaP/TDaP/Td (1 - Tdap) Never done Colon Cancer Screening Never done Zoster (1 of 2) Never done Pneumococcal Vaccine 50+ (2 of 2 - PPSV23) 07/25/2020 COVID-19 Vaccine (2023-25 season) Never done Wellness Exam Medicare 03/03/2024 As part of today's visit the components of the Medicare wellness assessment were completed. These components included reviewing the information available in the risk screening questionnaire that was administered by ancillary staff either today or prior to today's visit (pre-visit planning) and recorded in the Medicare Wellness Assessment Flowsheet in the EMR. I have reviewed the data in regards to fall risk, activities of daily living/functional status, depression screening, dementia screening,and outstanding Health Maintenance topics and edited where necessary. The staff has reviewed and updated the past medical history, social history, family history, allergies, medications, and care team information during the standard rooming process. I have also reviewed this data as part of today'svisit. Below are the findings, recommendations, and Personal Plan of Care. The patient received a copy of their Personal Plan of Care including health maintenance topics thatare recommended to be completed and this can be noted in the after visit summary. The AVS is provided to the patient digitally through their MyChart account or with a paper copy if the patient doesn't have an active MyChart Account. A copy of today's progress note with recommendations below is alsoavailable electronically for patients with an active MyChart account per the Federal Cures Act. TheAVS also contains additional patient education if appropriate on topics common to wellness and their plan of care. History Reviewed: No results found. No results found for this visit on 09/27/24. Patient Active Problem List Diagnosis Gastritis Sciatica of left side History reviewed. No pertinent past medical history. Past Surgical History: Procedure Laterality Date GALLBLADDER SURGERY Allergies Allergen Reactions Codeine Nausea And Vomiting Current Outpatient Medications on File Prior to Visit Medication Sig Dispense Refill calcium carbonate-vitamin D3 1,000 mg-20 mcg (800 unit) Oral Tablet Take 1 Tablet by mouth daily. 30 Tablet 11 HYDROcodone-acetaminophen (NORCO) 7.5-325 mg Oral Tablet Take 1 Tablet by mouth every 6 hours as needed. for pain ibuprofen (ADVIL;MOTRIN) 800 mg Oral Tablet Take 800 mg by mouth every 8 hours as needed. for pain No current facility-administered medications on file prior to visit. Social History Socioeconomic History Marital status: Legally Spouse name: None Number of children: None Years of education: None Highest education level: None Tobacco Use Smoking status: Never Smokeless tobacco: Never Vaping Use Vaping status: Never Used Substance and Sexual Activity Alcohol use: Yes Comment: 2 beers a day and whisky Drug use: Yes Types: Marijuana Comment: 2 joints a day Sexual activity: Yes Partners: Male History reviewed. No pertinent family history. Immunization History Administered Date(s) Administered Pneumococcal Conjugate Vaccine 13 Valent 07/26/2019 Health Maintenance Topic Date Due Hepatitis C Screening Never done DTaP/TDaP/Td (1 - Tdap) Never done Colon Cancer Screening Never done Zoster (1 of 2) Never done Pneumococcal Vaccine 50+ (2 of 2 - PPSV23) 07/25/2020 COVID-19 Vaccine (1 - season) Never done Wellness Exam Medicare 03/03/2024 Influenza Vaccine (Season Ended) 2025 Breast Cancer Screening 10/27/2025 Bone Density Screening Completed Meningococcal B Vaccine Aged Out Hepatitis B Vaccine Aged Out Patient Care Team: Hasmukh Schreiber MD as PCP - General (Family Medicine) Additional issues addressed today: Ankle swelling x 4 years Review of Systems Constitutional: Negative for fever. Eyes: Negative for visual disturbance. Respiratory: Negative for cough. Cardiovascular: Negative for chest pain. Gastrointestinal: Negative for abdominal pain, constipation and diarrhea. Genitourinary: Negative for difficulty urinating. Musculoskeletal: Negative for joint swelling. Skin: Negative for rash. Neurological: Negative for dizziness, light-headedness and headaches. OBJECTIVE: Physical Exam Vitals reviewed. Constitutional: General: She is not in acute distress. Appearance: Normal appearance. She is well-developed. She is not ill-appearing. HENT: Head: Normocephalic and atraumatic. Right Ear: Tympanic membrane is not erythematous or bulging. Left Ear: Tympanic membrane is not erythematous or bulging. Eyes: General: Right eye: No discharge. Left eye: No discharge. Conjunctiva/sclera: Conjunctivae normal. Cardiovascular: Rate and Rhythm: Normal rate and regular rhythm. Heart sounds: Normal heart sounds. Pulmonary: Effort: Pulmonary effort is normal. Breath sounds: Normal breath sounds. Abdominal: Palpations: Abdomen is soft. Musculoskeletal: General: Normal range of motion. Skin: General: Skin is warm. Findings: No rash. Neurological: Mental Status: She is alert. Psychiatric: Mood and Affect: Mood normal. Thought Content: Thought content normal. Assessment & Plan Leg swelling Orders: fUROsemide (LASIX) 20 mg Oral Tablet; Take 1 Tablet by mouth daily as needed. Annual physical exam Orders: CBC WITH DIFF; Future COMPREHENSIVE METABOLIC PANEL; Future LIPID SCREEN; Future TSH REFLEX TO FT4; Future Labs declined today. Chronic pain of left knee Orders: meloxicam (MOBIC) 7.5 mg Oral Tablet; Take 1 Tablet by mouth daily. documented in this encounter Plan of Treatment Scheduled Orders Name Type Priority Associated Diagnoses Orde r Schedule CBC WITH DIFF Lab Routine Annual physical exam 1 Occurrences starting 09/27/2024 until 09/27/2025 COMPREHENSIVE METABOLIC PANEL Lab Routine Annual physical exam 1 Occurrences starting 09/27/2024 until 09/27/2025 LIPID SCREEN Lab Routine Annual physical exam 1 Occurrences starting 09/27/2024 until 09/27/2025 TSH REFLEX TO FT4 Lab Routine Annual physical exam 1 Occurrences starting 09/27/2024 until 09/27/2025 documented as of this encounter Goals Goal Patient Goal Type Associated Problems Recent Progress Patient-Stated? Author Maintain a healthy diet, exercise regularly and maintain an ideal body weight General No Linda Dinh APRN Stay Tobacco Free Lifestyle No Linda Dinh APRN documented as of this encounter Visit Diagnoses Diagnosis Annual physical exam- Primary Routine general medical examination at a health care facility Leg swelling Swelling of limb Chronic pain of left knee Pain in joint, lower leg documented in this encounter Discontinued Medications Medication Sig Discontinue Reason Start Date End Da te fUROsemide (LASIX) 20 mg Oral TabletIndications:Leg swelling Take 1 Tablet by mouth daily as needed. Reorder 03/03/2023 09/27/2024 meloxicam (MOBIC) 7.5 mg Oral TabletIndications:Chroni c pain of left knee Take 1 Tablet by mouth daily. Reorder 09/13/2023 09/27/2024 documented as of this encounter Historical Medications * This list may reflect changes made after this encounter. HYDROcodone-aceta minophen (NORCO) 7.5-325 mg Oral Tablet Take 1 Tablet by mouth every 6 hours as needed. for pain 09/13/2024 ibuprofen (ADVIL;MOTRIN) 800 mg Oral Tablet Take 800 mg by mouth every 8 hours as needed. for pain 09/13/2024 added in this encounter Additional Health Concerns Assessment Noted Time A fall risk assessment has been complete d for the patient 03/03/2023 1:15 PM EDT documented as of this encounter Care Teams Seafood Manager Relationship Specialty Start Date End Date Hasmukh Schreiber MD [address] [place] [address] PCP - General Family Medicine 08/12/21 documented as of this encounter
--- OUTSIDE RECORDS SUMMARY | 2024-10-23 09:26 | XMS_ITS | Encounter Summary ---
Author Organization [facility] [place] [address] Care Team Providers Care Career Counselor Name Role Phone Hasmukh Schreiber MD Primary Care Provider Reason for Referral * Mammography (Routine) - Pending Review Specialty Diagnoses / Procedures Referred By Lorrie t Referred To Contact Radiology Diagnoses Visit for screening mammogram Procedures MM MAMMO DIGITAL YOGESH SCREEN Hasmukh Dempsey MD [address] [place] [address] Phone: tel: fax: Referral ID Status Reason Start Date Expiration Date V isits Requested Visits Authorized [id number] Pending Review 10/12/2024 10/12/2026 1 1 Reason for Visit * Mammography (Routine) - Pending Review Specialty Diagnoses / Procedures Referred By Lorrie garcia Referred To Contact Radiology Diagnoses Visit for screening mammogram Procedures MM MAMMO DIGITAL YOGESH SCREEN Hasmukh Dempsey MD [address] [place] [address] Phone: tel: fax: Referral ID Status Reason Start Date Expiration Date V isits Requested Visits Authorized [id number] Pending Review 10/12/2024 10/12/2026 1 1 Encounter Details Date Type Department Care Team ([facility] st Contact Info) Description 10/23/2024 9:26 AM EDT - 10/23/2024 11:59 PM EDT Hospital Encounter [facility] [address] [place] [address] Hasmukh Schreiber MD [address] [place], [place] [id number] Visit for screening mammogram Discharge Disposition: Home or Self Care Social History Tobacco Use Types Packs/Day Years [...] on file documented as of this encounter Functional Status * Is the person deaf or does [...] No 09/27/2024 10:28 AM Cheryl Blue CCMA documented as of this encounter Mental Status * Because of a physical, mental or emotional condition, does this person have serious difficulty concentrating, remembering or making decisions? Answer Entry Date Author No 09/27/2024 10:28 AM Cheryl Blue ELIZABETH documented in this encounter Medications at Time of Discharge calcium carbonate-vitamin D3 1,000 mg-20 mcg (800 unit) Oral Tablet Take 1 Tablet by mouth daily. 30 Tablet 11 11/03/2023 fUROsemide (LASIX) 20 mg Oral TabletIndications :Leg swelling Take 1 Tablet by mouth daily as needed. 30 Tablet 5 09/27/2024 HYDROcodone-aceta minophen (NORCO) 7.5-325 mg Oral Tablet Take 1 Tablet by mouth every 6 hours as needed. for pain 09/13/2024 ibuprofen (ADVIL;MOTRIN) 800 mg Oral Tablet Take 800 mg by mouth every 8 hours as needed. for pain 09/13/2024 meloxicam (MOBIC) 7.5 mg Oral TabletIndications :Chronic pain of left knee Take 1 Tablet by mouth daily. 30 Tablet 2 09/27/2024 documented as of this encounter Discharge Disposition Disposition Code Departure Means Destination Home or Self Care documented in this encounter Plan of Treatment Not on file documented as of this encounter Goals Goal Patient Goal Type Associated Problems Recent Progress Patient-Stated? Author Maintain a healthy diet, exercise regularly and maintain an ideal body weight General No Linda Dinh, RADIO STATION ENGINEER Stay Tobacco Free Lifestyle No Linda Dinh APRN documented as of this encounter Procedures Procedure Name Priority Date/Time Associated Diagnosis Comments MM MAMMO DIGITAL YOGESH SCREEN BILAT Routine 10/23/2024 9:52 AM EDT Visit for screening mammogram documented in this encounter Results * MM MAMMO DIGITAL YOGESH SCREEN BILAT (10/23/2024 9:52 AM EDT) Anatomical Region Laterality Modality Breast Bilateral Mammography 10/23/2024 9:52 AM EDT Impressions 10/23/2024 10:27 AM EDT Negative ([id number]-1) RECOMMENDATION: Routine Screening Mammogram in 1 Year Bilateral . . COMMENTS: DISCLAIMER *The patient was notified by MyChart or mail of the results for this examination. *The patient's information was entered into a reminder system with a target due date for the next breast imaging, in accordance with the [employer] and the Society of Breast Imaging recommendations. *Breast Imaging has a false negative rate of 15%. *Any patient with a palpable abnormality, unexplained by breast imaging, should be managed on a clinical basis by the attending physician. Narrative 10/23/2024 10:27 AM EDT EXAM: MM MAMMO DIGITAL YOGESH SCREEN BILAT EXAM DATE: 10/23/2024 9:52 AM INDICATION: Z12.31-Encounter for screening mammogram for malignant neoplasm of [id number]-[id number]-42-CM COMPARISON STUDIES: Compared with prior studies the most recent being 10/28/2023 MM MAMMO DIGITAL YOGESH SCREEN BILAT at [facility] 04/21/2022 MM MAMMO DIGITAL YOGESH SCREEN BILAT at [facility] 07/19/2019 MM MAMMO DIGITAL YOGESH SCREEN BILAT at [facility] TISSUE DENSITY: The breasts are extremely dense, which lowers the sensitivity of mammography. FINDINGS: No mammographic evidence of malignancy. No suspicious calcifications. Procedure Note Gaudencio Garrison DO - 10/23/2024 EXAM: MM MAMMO DIGITAL YOGESH SCREEN BILAT EXAM DATE: 10/23/2024 9:52 AM INDICATION: Z12.31-Encounter for screening mammogram for malignantneoplasm of [id number]-DJQ-43-CM COMPARISON STUDIES: Compared with prior studies the most recent being 10/28/2023 MM MAMMO DIGITAL YOGESH SCREEN BILAT at [facility] 04/21/2022 MM MAMMO DIGITAL YOGESH SCREEN BILAT at [facility] 07/19/2019 MM MAMMO DIGITAL YOGESH SCREEN BILAT at [facility] TISSUE DENSITY: The breasts are extremely dense, which lowers thesensitivity of mammography. FINDINGS: No mammographic evidence of malignancy. No suspiciouscalcifications. IMPRESSION: Negative (HSR-Vycibvbc-8) RECOMMENDATION: Routine Screening Mammogram in 1 Year Bilateral . . COMMENTS: DISCLAIMER *The patient was notified by MyChart or mail of the results for this examination. *The patient's information was entered into a reminder system with atarget due date for the next breast imaging, in accordance with the [employer] and the Society of Breast Imaging recommendations. *Breast Imaging has a false negative rate of 15%. *Any patient with a palpable abnormality, unexplained by breast imaging,should be managed on a clinical basis by the attending physician. Hasmukh Schreiber MD IMG MAMMOGRAPHY ORDERAB LES Final Result documented in this encounter Visit Diagnoses Diagnosis Visit for screening mammogram Other screening mammogram documented in this encounter Additional Health Concerns Assessment Noted Time A fall risk assessment has been complete d for the patient 03/03/2023 1:15 PM EDT documented as of this encounter Care Teams Career Counselor Relationship Specialty Start Date End Date Hasmukh Schreiber MD [address] [place] [address] PCP - General Family Medicine 08/12/21 documented as of this encounter
[2024-10-28 17:09] VITALS: BP 162/94; PULSE 86; O2SAT 100
--- OUTSIDE RECORDS SUMMARY | 2024-10-28 17:09 | XMS_ITS | Clinical Summary ---
Author Organization [facility] Address [address] [place] [address] Phone Care Team Providers Care Mechanical Specialist Name Role Phone Hasmukh Schreiber MD Primary Care Provider Allergies Active Allergy Reactions Criticality Noted Date Comments Codeine Nausea And Vomiting 06/09/2019 Medications calcium carbonate-vitami n D3 1,000 mg-20 mcg (800 unit) Oral Tablet Take 1 Tablet by mouth daily. 30 Tablet 11 11/03/2023 Active ibuprofen (ADVIL;MOTRIN) 800 mg Oral Tablet Take 800 mg by mouth every 8 hours as needed. for pain 09/13/2024 Active HYDROcodone-acet aminophen (NORCO) 7.5-325 mg Oral Tablet Take 1 Tablet by mouth every 6 hours as needed. for pain 09/13/2024 Active fUROsemide (LASIX) 20 mg Oral TabletIndication s:Leg swelling Take 1 Tablet by mouth daily as needed. 30 Tablet 5 09/27/2024 Active meloxicam (MOBIC) 7.5 mg Oral TabletIndication s:Chronic pain of left knee Take 1 Tablet by mouth daily. 30 Tablet 2 09/27/2024 Active Active Problems Problem Noted Date Diagnosed Date Sciatica of left side 07/26/2019 Gastritis 06/14/2019 Encounters Date Type Department Care Team Description 10/23/2024 9:26 AM EDT - 10/23/2024 11:59 PM EDT Hospital Encounter [facility] [address] [place] [address] Hasmukh Schreiber MD Visit for screening mammogram Discharge Disposition: Home or Self Care 09/27/2024 11:00 AM EDT Office Visit [facility] [address] [place] [address] Hasmukh Schreiber MD Annual physical exam (Primary Dx); Leg swelling; Chronic pain of left knee 09/18/2024 Patient Outreach [facility] [address] [place] [address] Hasmukh Schreiber MD Central Patient Navigator Outreach (AWV Questionnaire) from Last 3 Months Immunizations Immunization Administration Dates Next Due Pneumococcal Conjugate Vaccine 13 Valent 020 Surgical History Surgery Date Site/Laterality Comments GALLBLADDER SURGERY Social History Tobacco Use Types Packs/Day Years Used Date Smoking Tobacco: Never Smokeless Tobacco: Never Tobacco Cessation:Counseling Given: Not Answered Alcohol Use Standard Drinks/Week Comments Yes 0 [...] on file Sexual Orientation Not on file Obstetrics History Para Term AB IAB SAB Ectopic Multiple Livin g Live Births 0 Last Filed Vital Signs Vital Sign Reading Time Taken Comments Blood Pressure 130/78 09/27/2024 10:29 AM EDT Pulse 78 07/26/2019 4:22 PM EST Temperature 36.7 C (98 F) 09/27/2024 10:29 AM EDT Respiratory Rate 20 06/12/2019 10:09 PM EST Oxygen Saturation 99% 11/06/2019 9:56 AM EDT Inhaled Oxygen Concentration - - Weight 64.4 kg (142 lb) 09/27/2024 10:29 AM EDT Height 170.2 cm (5' 7 ) 09/27/2024 10:29 AM EDT Body Mass Index 22.24 09/27/2024 10:29 AM EDT Plan of Treatment Health Maintenance Due Date Last Done Comments Hepatitis C Screening 1968 DTaP/TDaP/Td (1 - Tdap) 1969 Cologuard 10/15/1995 Colon Cancer Screening 10/15/1995 Colonoscopy 10/15/1995 FIT 10/15/1995 Sigmoidoscopy 10/15/1995 Virtual Colonography 10/15/1995 Zoster (1 of 2) 2000 Pneumococcal Vaccine 50+ (2 of 2 - PPSV23) 07/25/2020 07/26/2019 COVID-19 Vaccine ( season) 2024 Influenza Vaccine (Season Ended) 2025 Wellness Exam Medicare 09/28/2025 09/27/2024 Breast Cancer Screening 10/23/2026 10/24/19, 10/28/2023, 04/21/2022, Additional history exists Bone Density Screening Completed 10/28/2023 Hepatitis B Vaccine Aged Out No longe r eligible based on patient's age to complete this topic Meningococcal B Vaccine Aged Out No l onger eligible based on patient's age to complete this topic Goals Goal Patient Goal Type Associated Problems Recent Progress Patient-Stated? Author Maintain a healthy diet, exercise regularly and maintain an ideal body weight General No Linda Dinh, CYNDEE Stay Tobacco Free Lifestyle No Linda Dinh APRN Procedures Procedure Name Priority Date/Time Associated Diagnosis Comments MM MAMMO DIGITAL YOGESH SCREEN BILAT Routine 10/23/2024 9:52 AM EDT Visit for screening mammogram DX BONE DENSITY AXIAL SKELETON Routine 10/28/2023 2:59 PM EDT Postmenopausal estrogen deficiency from Last 3 Months or Most Recently Relevant to Health Maintenance Results * MM MAMMO DIGITAL YGOESH SCREEN BILAT (10/23/2024 9:52 AM EDT) Anatomical Region Laterality Modality Breast Bilateral Mammography 10/23/2024 9:52 AM EDT Impressions 10/23/2024 10:27 AM EDT Negative ([id number]-[id number]-8) RECOMMENDATION: Routine Screening Mammogram in 1 Year Bilateral . . COMMENTS: DISCLAIMER *The patient was notified by MyChart or mail of the results for this examination. *The patient's information was entered into a reminder system with a target due date for the next breast imaging, in accordance with the [employer] and the Society of [...] for screening mammogram for malignant neoplasm of [id number]-BYK-75-CM COMPARISON STUDIES: Compared with prior studies the most recent being 10/28/2023 MM MAMMO DIGITAL YOGESH SCREEN BILAT at [facility] 04/21/2022 MM MAMMO DIGITAL YOGESH SCREEN BILAT at [facility] 07/19/2019 MM MAMMO DIGITAL YOGESH SCREEN BILAT at [facility] TISSUE DENSITY: The breasts are extremely dense, which lowers the sensitivity of mammography. FINDINGS: No mammographic evidence of malignancy. No suspicious calcifications. Procedure Note Gaudencio Garrison DO - 10/23/2024 EXAM: MM MAMMO DIGITAL YOGESH SCREEN BILAT EXAM DATE: 10/23/2024 9:52 AM INDICATION: Z12.31-Encounter for screening mammogram for malignantneoplasm of [id number]-ZXG-53-CM COMPARISON STUDIES: Compared with prior studies the most recent being 10/28/2023 MM MAMMO DIGITAL YOGESH SCREEN BILAT at [facility] 04/21/2022 MM MAMMO DIGITAL YOGESH SCREEN BILAT at [facility] 07/19/2019 MM MAMMO DIGITAL YOGESH SCREEN BILAT at [facility] TISSUE DENSITY: The breasts are extremely dense, which lowers thesensitivity of mammography. FINDINGS: No mammographic evidence of malignancy. No suspiciouscalcifications. IMPRESSION: Negative ([id number]-2) RECOMMENDATION: Routine Screening Mammogram in 1 Year Bilateral . . COMMENTS: DISCLAIMER *The patient was notified by MyChart or mail of the results for this examination. *The patient's information was entered into a reminder system with atarget due date for the next breast imaging, in accordance with the [employer] and the Society of Breast Imaging recommendations. *Breast Imaging has a false negative rate of 15%. *Any patient with a palpable abnormality, unexplained by breast imaging,should be managed on a clinical basis by the attending physician. us Hasmukh Schreiber MD [facility] MAMMOGRAPHY ORDERAB LES Final Result * DX BONE DENSITY AXIAL SKELETON (10/28/2023 2:59 PM EDT) Anatomical Region Laterality Modality Dexa Scan 10/28/2023 Impressions 11/02/2023 4:04 PM EDT Indication: The patient is a female age 65 or older who requires a bone density assessment. Study was performed on Latinda 5. Bone Density: Region BMD T-score Z-score [...] this report. Reported by: Romina Lucas PA-C, CCD on 10/28/2023 3:19:00 PM. Hasmukh Schreiber MD IMG DEXA ORDERABLES Fin al Result from Last 3 Months or Most Recently Relevant to Health Maintenance Insurance Care Teams Mechanical Specialist Relationship Specialty Start Date End Date Hsamukh Schreiber MD [address] [place] [address] PCP - General Family Medicine 08/12/21
--- OUTSIDE RECORDS SUMMARY | 2024-10-28 17:09 | XMS_ITS | Clinical Summary ---
Author Organization [facility] Address [address] [place] [phone] Phone Care Team Providers Care Elevator Installer Name Role Phone Marc MCFARLAND, Yaneth Primary Care Physician [ ] Conditions or Problems Problem Name Problem Code Onset Date Status Entry Date Provider Comment Standard Description Annotate Body mass index (BMI) 24.0-24.9; adult Z68.24 (ICD-10-CM ) 11/03 Active 11/03 Zoe Brulamont CYNDEE Body mass index [BMI] 24.0-24.9, adult Flank pain, left 177935641 (SNOMED CT) 11/03 Active 11/03 Zoe Gallardo APRN Left flank pain TINNITUS 63436681 (SNOMED CT) Inactive Yaneth Tran MD Tinnitus SHINGLES 4502810 (SNOMED CT) Active Yaneth Tran MD Herpes zoster HYPERTENSION [id number] (SNOMED CT) Active Yaneth Tran MD Hypertensive disorder Medications Medication Instructions Start Date Stop Date Generic Name [facility] Provider LISINOPRIL 10 MG TABS TAKE 1 TABLET BY MOUTH 1 TIME A DAY 7 LISINOPRIL [id number] Zoe Gallardo APRN IBUPROFEN 800 MG TABS TAKE 1 TABLET THREE TIMES DAILY NEEDED FOR PAIN 3 IBUPROFEN [id number] Zoe Gallardo APRN ACYCLOVIR 800 MG TABS Take 1 tablet by mouth 5 times a day 7 ACYCLOVIR [id number] Yaneth Tran MD LISINOPRIL 10 MG TABS TAKE 1 TABLET BY MOUTH 1 TIME A DAY 7 LISINOPRIL [id number] Yaneth Tran MD Medications Administered No information available. Allergies, Adverse Reactions, Alerts Observed no known allergies at Results Date Name Value Unit Range Flag Description Office Visit: new/general ch taylor up/arthritis,anxiety rm11 LDL GOAL <100 mg/dL LDL target l evel Lab Report: CBC (H/H, RBC, I NDICES, WBC, PLT), COMPREHENSIVE METABOLIC P ... TSHREFLX FT4 2.53 m[iU]/L 0.40-4.50 N TSH (t hyroid stimulating hormone) with reflex FT4 CHOL/HDL % 3.0 (calc) < OR = 5.0 N cholesterol/HDL ratio, serum, percent LDL 101 MG/DL (CALC) mg/dL <130 N Cholesterol in L DL [Mass/volume] in Serum or Plasma - mg/dL TRIGLYCRDES 155 mg/dL <150 H Triglycer anabel [Mass/volume] in Serum or Plasma - mg/dL HDL 66 mg/dL >OR = 46 N Cholesterol in HDL [Mass/volume] in Serum or Plasma - mg/dL CHOLESTEROL 198 mg/dL 125-200 N Cholester ol [Mass/volume] in Serum or Plasma - mg/dL SGPT (ALT) 12 U/L 6-29 N Alanine aminotransferase [Enzymatic activity/volume] in Serum or Plasma SGOT (AST) 15 U/L 10-35 N Aspartate aminotransferase [Enzymatic activity/volume] in Serum or Plasma ALK PHOS 75 U/L 33-130 N Alkaline phosphatase [Enzymatic activity/volume] in Blood BILI TOTAL 0.6 mg/dL 0.2-1.2 N Bilirubin. total [Mass/volume] in Serum or Plasma A/G RATIO 1.5 (calc) 1.0-2.5 N Albumin/ Globulin [Mass Ratio] in Serum or Plasma GLOBULIN TOT 3.0 G/DL (CALC) g/dL 1.9-3.7 N Globulin [Mass/volume] in Serum ALBUMIN EOP 4.5 g/dL 3.6-5.1 N Albumin [Mass/volume] in Serum or Plasma by Electrophoresis PROTEIN, TOT 7.5 g/dL 6.1-8.1 N Protein [Mass/volume] in Serum or Plasma CALCIUM 9.7 mg/dL 8.6-10.4 N Calcium [Moles/volume] in Serum or Plasma CO2 24 mmol/L 19-30 N Carbon dioxid e, total [Moles/volume] in Venous blood CHLORIDE BLD 106 mmol/L 98-110 N chloride , blood POTASSIUM 4.5 mmol/L 3.5-5.3 N Potassium [Moles/volume] in Serum or Plasma SODIUM 140 mmol/L 135-146 N Sodium [Moles/volume] in Serum or Plasma BUN/CREAT NOT APPLICABLE (calc) 6-22 Urea nitrogen/Creatinine [Mass Ratio] in Serum or Plasma EGFR 77 mL/min/1 .73m2 >OR = 60 N Glomerular filtration rate/1.73 sq M.predicted [Volume Rate/Area] in Serum, Plasma or Blood by Creatinine-based formula (MDRD) CREATININE 0.82 mg/dL 0.50-0.99 N Creatini ne [Mass/volume] in Serum or Plasma BUN 18 mg/dL 7-25 N Urea nitrogen [Mass/volume] in Serum or Plasma BG RANDOM 98 mg/dL 65-99 N Glucose [Mass/volume] in Blood PLATELETK/UL 264 THOUSAND/UL 10*3/uL 140-400 N platelet count RDW 13.6 % 11.0-15.0 N Erythrocyte distribution width [Ratio] by Automated count OL-MCHC 33.3 g/dL 32.0-36.0 N mean corpus cular hemoglobin concentration, rbc MCH 32.2 pg 27.0-33.0 N MCH [Entiti c mass] by Automated count MCV 96.8 fL 80.0-100. 0 N MCV [Entitic volume] by Automated count HCT 46.5 % 35.0-45.0 H Hematocrit [Volume Fraction] of Blood by Automated count HGB 15.4 g/dL 11.7-15.5 N Hemoglobin [Mass/volume] in Blood RBC M/UL 4.80 MILLION/UL 10*6/uL 3.80-5.10 N red blood count WBC CT BLOOD 6.7 10*3/uL 3.8-10.8 N leukocy te count, blood Office Visit: left lower barbra k/side/abdominial pain for 1 week/rm 3 SPEC GR URIN 1.010 Specific gravity of Urine by Test strip PH URINE 5.5 pH of Urine by Test strip APPEARANCE U clear Appearan ce of Urine UA COLOR dark Color of Uri ne GLUCOSE, URN negative Glucose [Mass/volume] in Urine by Test strip BILIRUBIN UR negative Bilirub in.total [Presence] in Urine by Test strip KETONES URN negative Ketones [Mass/volume] in Urine by Test strip BLOOD UR DIP negative blood i n urine (hemoglobin) by dipstick PROTEIN, URN negative protein , urine, semiquantitative (dipstick) UROBILINOGEN negative Urobili nogen [Presence] in Urine by Test strip NITRITE URN negative Nitrite [Presence] in Urine by Test strip WBC DIPSTK U negative Leukocy te esterase [Presence] in Urine by Test strip Plan of Care Type Date Detail Pending order Ultrasound Renal Pending order Urine Dip Auto 8 1003 Pending order CBC no diff Pending order CMP Pending order Lipid Panel Pending order TSH to Free T-4 Patient education Medications Procedures Code Procedure Name Date Entry Date [facility]-[id number] Medication Reconciliation CPT-3077F Most recent systolic blood pressure >=140 mm Hg CPT-3079F Most recent diastoli c blood pressure 80-89 mm Hg [facility]-[id number] SNOMED-CT: [id number] Current Medications Documented CPT-44811 Urine Dip Auto 47466 Renal [facility] Ultrasound Renal 82473 [facility] # TSH to Free T-4 72186 [facility] # Lipid Panel 37216 [facility] # CMP 7 [facility] [id number] CBC no diff Vital Signs Date Name Value Unit Description BMI (Body Mass Index) 24.05 kg/m2 Bod y Mass Index (Ratio) Body Temperature 97.6 [degF] temperat ure E&M Body Temperature 36.44 Rosario temperat ure in centigrade E&M BP Diastolic 82 mm[Hg] blood pressu re, diastolic BP Systolic 149 mm[Hg] blood pressur e, systolic BSA (Body Surface Area) 1.81 b steven surface area Heart Rate 68 /min pulse rate 10 Heart Rate 80 /min pulse rate Height 67 [in_us] height E&M Height 170.18 cm height in cent imeters E&M Respiratory Rate 18 /min respirat ory rate E&M Weight Measured 153 [lb_av] weight E& M Weight Measured 153 [lb_av] weight E& M Weight Measured 69.55 kg weight in kilograms E&M Immunizations No information available. Advance Directives No information available.
--- OUTSIDE RECORDS SUMMARY | 2024-10-28 17:10 | XMS_ITS | Encounter Summary ---
Author Organization [place] [address] Care Team Providers Care Technology Intern Name Role Phone Hasmukh Schreiber MD Primary Care Provider Reason for Visit * Reason Onset Date Comments Central Patient Navigator Outreach 09/18/2024 AWV Questionnaire Encounter Details Date Type Department Care Team (Late Contact Info) Description 09/18/2024 Patient Outreach [facility] [address] [place] [address] Hasmukh Schreiber MD [address] [place] [id number] Central Patient Navigator Outreach (AWV Questionnaire) Social History Tobacco Use Types Packs/Day Years Used Date Smoking Tobacco: Never Smokeless Tobacco: Never Alcohol Use Standard Drinks/Week Comments Yes 0 (1 standard drink = 0.6 oz pur e alcohol) 2 beers a day and whisky PHQ-2 Answer Date Recorded PHQ-2 Total Score 0 03/03/2023 Sexually Active Control Partners Comments Yes Male Comments No Sex and Gender Information Value Date Recorded Sex Assigned at Not on file Legal Sex Female 9:26 PM EDT Gender Identity Not on file Sexual Orientation Not on file documented as of this encounter Functional Status * Is the person deaf or does he/she have serious difficulty hearing? Answer Date of Assessment Author No 07/11/2019 3:36 PM Sulema Hernandez MA * Is the person blind or does he/she have serious difficulty seeing even when wearing glasses? Answer Date of Assessment Author No 07/11/2019 3:36 PM Sulema Hernandez MA * Does this person have serious difficulty walking or climbing stairs? Answer Date of Assessment Author No 07/11/2019 3:36 PM Sulema Hernandez MA * Does this person have difficulty dressing or bathing? Answer Date of Assessment Author No 07/11/2019 3:36 PM Sulema Hernandez MA * Because of a physical, mental or emotional condition, does this person have difficulty doing errands alone such as visiting a doctor's office or shopping? Answer Date of Assessment Author No 07/11/2019 3:36 PM Sulema Hernandez MA documented as of this encounter Mental Status * Because of a physical, mental or emotional condition, does this person have serious difficulty concentrating, remembering or making decisions? Answer Entry Date Author No 07/11/2019 3:36 PM Sulema Hernandez MA documented in this encounter Progress Notes * Barbara Mcfadden - 09/18/2024 9:01 AM EDT Patient Outreach: Pre-Visit Questionnaires Attempt Count: 1st Care Gaps Addressed electrical continuity inspector: Medicare Questionnaire Outcome:Left message to return call at Call back number: [phone] documented in this encounter Plan of Treatment Not on file documented as of this encounter Goals Goal Patient Goal Type Associated Problems Recent Progress Patient-Stated? Author Maintain a healthy diet, exercise regularly and maintain an ideal body weight General No Linda Dinh APRN Stay Tobacco Free Lifestyle No Linda Dinh APRN documented as of this encounter Visit Diagnoses Not on filedocumented in this encounter Additional Health Concerns Assessment Noted Time A fall risk assessment has been complete d for the patient 03/03/2023 1:15 PM EDT documented as of this encounter Care Teams Technology Intern Relationship Specialty Start Date End Date Hasmukh Schreiber MD [address] [place] [address] PCP - General Family Medicine 08/12/21 documented as of this encounter
--- NOTE | 2024-10-28 17:11 | XR_ITS ---
PROCEDURE INFORMATION: Exam: XR Chest Exam date and time: 10/28/2024 5:19 PM Age: 74 years old Clinical indication: Other: Swelling TECHNIQUE: Imaging protocol: Radiologic exam of the chest. Views: 1 view. COMPARISON: CR XR CHEST 2V 02/11/2024 10:21 PM FINDINGS: Lungs: Unremarkable. No consolidation. Pleural spaces: Unremarkable. No pleural effusion. No pneumothorax. Heart/Mediastinum: Similar morphology to the upper mediastinum (level of the aortic arc), likely related to a tortuous aorta. No cardiomegaly. Bones/joints: Unremarkable. IMPRESSION: No acute findings.
[2024-10-28 17:15] VITALS: BP 162/94; PULSE 78; RESP 16; TEMP 36.9; O2SAT 95; BMI 23.3
--- NOTE | 2024-10-28 17:38 | ED_ITS ---
<Statement entered by Shani Maldonado MD - 10/28/24 23:19> I was consulted by the BERNIE, and we discussed the complexity of the problems being addressed. I approved the treatment and management plan for this patient's care in the emergency department, thus performing a substantive portion of the medical decision making. Shani Maldonado MD, TON, FACEP Discharge Plan Disposition Patient Disposition: Home, Self-Care Prescriptions Prescriptions: New clindamycin HCl [Cleocin HCl] 300 mg capsule 300 mg PO BID 7 Days Qty: 14 0RF No Action diclofenac sodium 1 % gel 2 g topical QID Qty: 100 2RF Rx Instructions: apply to single elbow, wrist or hand; for hand includes palm/fingers/back of hand ibuprofen 600 mg tablet 600 mg PO TID PRN (Reason: pain) Qty: 20 0RF Referrals Follow up/Referrals: Hasmukh Schreiber MD [Primary Care Provider, Medical] - See instructions Clinical Impressions Clinical Impression: Cellulitis Instructions Patient Instructions: Cellulitis Print Language Print Language: Faroese Discharge ED Provider: Shani Maldonado General Adult HPI General Chief complaint: Extremity Injury, Lower Stated complaint: Stung by Bee on Both Arms Time Seen by Provider: 10/28/24 17:05 Mode of Arrival: Ambulatory Source of Information: Patient Description of Symptoms (Recalled from ER Triage Doc. by RN): patient states lastnight her LLE became red and swollen. denies any injuries. she also reports a bee stung her two times on her way in here History of Present Illness HPI narrative: 74-year-old female presents to the ED today with complaint of left lower extremity redness and swelling since yesterday. Patient states that she has had no injury recently but had a dog bite to bilateral lower extremities many years ago. At the end of the triage she also mentions that a bee stung her on the way in to the hospital 1 on both arms. Patient denies any fever, chills, nausea, vomiting or diarrhea. Related Data Previous Rx's ?Medication ?Instructions ?Recorded ibuprofen 600 mg tablet 600 mg PO TID PRN pain #20 t abs 02/12/24 diclofenac sodium 1 % topical gel 2 g topical QID #100 grams 04/27/24 clindamycin HCl 300 mg capsule 300 mg PO BID 7 days #1 4 caps 10/28/24 (Cleocin HCl) Allergies Allergy/AdvReac Type Severity Reaction Status Date / Time No Known Allergies Allergy Verified 06/01/24 14:30 [facility] Disclaimer: The information contained in this section may have been updated after the patient was seen, as this information can be updated by other users. Medical History Left wrist fracture COPD (chronic obstructive pulmonary disease) Hypertension Surgical History History of cholecystectomy Family History Mother Diabetes Heart attack Sister Hypertension Father Esophageal cancer Social History Smoking Status: Never smoker alcohol intake: current substance use type: marijuana current occupational status: retired Travel in the last 8 weeks?: None Have you lived/traveled outside US in past 30 days?: No Contact w/someone who lives/traveled outside US past 30 days?: No Exposure to someone with infectious disease in past 14 days?: No Do you have a fever (greater than 100.4 F or 38 C)?: No Have you tested positive for COVID-19?: No Exposed to someone with COVID-19 in past 14 days?: No Do you have a sore throat?: No Do you have a cough?: No Do you have any weakness?: No Do you have any diarrhea?: No Are you experiencing any unusual bleeding?: No Do you have any muscle aches/pain?: No Do you have any abdominal pain?: No Are you experiencing loss of taste or smell?: No Other Medical History Have you received the Flu Vaccine for this season: No Have you received the Pneumonia Vaccine: No ROS Obtained: Yes Systems reviewed as appropriate & no additional complaints except as documented Constitutional Constitutional: Reports as per HPI Physical Exam General General appearance: alert Head Head exam: atraumatic and normocephalic Eye Eye exam: Present PERRL and EOMI ENT ENT exam: Present normal oropharynx and mucous membranes moist Neck Neck exam: Present full ROM and trachea midline Respiratory Respiratory exam: Present normal lung sounds bilaterally Cardiovascular Cardiovascular exam: Present regular rate, normal rhythm, normal heart sounds, +S1 and +S2 Abdominal Exam Abdominal exam: Present soft and normal bowel sounds Extremities Exam Extremities exam: Present tenderness, edema and other (Erythema, +3-4 edema and tenderness) Neurological Exam Neurological exam: Present alert, oriented X3 and normal gait Skin Skin exam: Present dry, intact and erythema Medical Decision Making Medical Records Screening: Per USPSTF and CDC recommendations, given the prevalence of disease in our region, it is our hospital?s policy to screen for HIV and viral Hepatitis for all patients aged 18 and over and those with ongoing risk factors. Mikey Inquiry Pt receiving controlled substance: No Mikey was queried for this patient: No Vital Signs: 10/28/24 17:09 10/28/24 17:15 10/28/24 17:43 Temperature 98.4 F 98.7 F Temperature Source Oral Oral Pulse Rate 86 85 Pulse Rate [Right Radial] 78 Respiratory Rate 16 15 Blood Pressure 162/94 H 130/82 Blood Pressure [Right Arm] 162/94 H Blood Pressure Mean [Right Arm] 116 Blood Pressure Source Automatic Cuff Blood Pressure Source [Right Arm] Automatic Cuff Blood Pressure Position Supine Blood Pressure Position [Right Arm] Sitting 02 Sat by Pulse Oximetry 100 95 Oxygen Delivery Method Room Air Room Air Orders (Tests/Meds): ORDERS Category Date Time Status Chest XR -- portable [XR chest portable] Stat Exams 10/28/24 17:11 Completed BNP [NT Pro Brain Natriuretic Pep.] Stat Lab 10/28/24 17:11 Ordered CBC [Complete Blood Count Auto Diff] Stat Lab 10/28/24 17:11 Ordered CRP [C-Reactive Protein] Stat Lab 10/28/24 17:11 Ordered Comprehensive Metabolic Panel Stat Lab 10/28/24 17:11 Ordered Erythrocyte Sedimentation Rate Stat Lab 10/28/24 17:11 Ordered HIV Combo Stat Lab 10/28/24 17:21 Ordered Hepatitis C Ab Qual. W/ RFX Stat Lab 10/28/24 17:21 Ordered Lipase Stat Lab 10/28/24 17:11 Ordered Magnesium Stat Lab 10/28/24 17:11 Ordered Trop I [Troponin I] Stat Lab 10/28/24 17:11 Ordered Medical Decision Narrative: patient is a 74-year-old female presenting to the emergency department for evaluation of left lower extremity erythema and swelling. Patient is he modynamically stable and nontoxic-appearing upon arrival, afebrile. Differential diagnosis includes cellulitis, heart failure, venous congestion, injury to left lower extremity, sepsis, among others. Workup will be conducted with labs and imaging however patient was not agreeable to plan. She wanted antibiotics and to be let go. She says her ride was not willing to wait. She wants medications and that is it. I discussed this at length with her and she agreed to take the antibiotics and if they did not work she would return for further care. Patient is stable and safe for discharge home Critical Care Critical Care Time Critical Care Time: No
[2024-10-28 17:43] VITALS: BP 130/82; PULSE 85; RESP 15; TEMP 37.1; O2SAT 99
== END 2024-10-28 17:45 | disposition home or self-care (01) ==
PROVIDERS: Emergency Provider Student in an Organized Health Care Education/Training Program; PCP Family Medicine
DX: L03.116 Cellulitis of left lower limb (principal); R22.42 Localized swelling, mass and lump, left lower limb
CPT/HCPCS: 71045; 99283